=== PATIENT | male | born 2000 | race Caucasian/White ===

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

== ENCOUNTER 2022-04-18 15:00 | Emergency (ER) | payer OTHER | END 2022-04-18 16:55 | disposition home or self-care (01) | LOC: ERS 15:00 | DX: S09.90XA Unspecified injury of head, initial encounter (principal); Y04.0XXA Assault by unarmed brawl or fight, initial encounter; Y93.72 Activity, wrestling | CPT/HCPCS: 70450 ==